=== PATIENT | male | born 1985 | race Caucasian/White ===

== ENCOUNTER 2016-07-15 21:54 | Inpatient (IN) | payer OTHER ==
[~2016-07-15] VITALS: Ht 170.2 cm; Wt 72.6 kg
--- NOTE | 2016-07-15 22:29 | NUR ---
PT IN ED FOR ANXIETY; PT PRESENTED WITH DIAPHORESIS AND RAPID BREATHING. PT ADMITS TO RECENT METH USE. PT'S HR IN THE 200'S; CONNECTED TO FULL CM. PT IS AWAKE AND ALERT; DENIES ANY PAIN AT THIS TIME. MSE COMPLETED BY DR HENRY
--- NOTE | 2016-07-15 22:34 | NUR ---
PT MEDICATED PER MD ORDERS FOR ANXIETY AND INCREASED HR DUE TO METH USE. PT ENCOURAGED TO BREATH SLOWLY AND TRY NOT TO TENSE UP MUSCLES, PT VERBALIZED UNDERSTANDING. PT BEING COOPERATIVE WITH STAFF.
[2016-07-15 22:40] LABS: PLATELET COUNT 322 x10^3mcL (130-400); RED CELL DISTRIBUTION WIDTH 13.8 % (11.5-14.5)
--- NOTE | 2016-07-15 22:48 | NUR ---
PT IN BED WITH EYES CLOSED BUT EASILY AROUSABLE. PT IS NOW BREATHING EVEN AND UNLABORED; NO LONGER DIAPHORETIC. PT IN FULL VIEW OF NURSES' STATION. WILL CONTINUE TO MONITOR
[2016-07-15 22:53] LABS: CALCIUM 9.6 mg/dL (8.5-10.1); CARBON DIOXIDE 13.6 mmol/L (21-32); CHLORIDE SERUM 102 mmol/L (98-107); CREATININE SERUM 1.6 mg/dL (0.7-1.3); GFR1 54 mL/min; GLUCOSE SERUM 145 mg/dL (74-106); POTASSIUM SERUM 4.6 mmol/L (3.5-5.1); SODIUM SERUM 143 mmol/L (136-145)
[2016-07-15 22:55] LABS: BAND NEUTROPHIL 6 % (0-10); METAMYELOCTE 3 % (0-2); MONOCYTE 5 % (0-7); SEGMENTED NEUTROPHILS 82 % (37-75); rbc morphology (normal/abnorm) NORMAL (NORMAL)
[2016-07-15 22:56] LABS: PLATELET MORPHOLOGY FEW LARGE PLATELET
[2016-07-15 22:57] LABS: ALBUMIN 4.4 g/dL (3.4-5.0); ALKALINE PHOSPHATASE 107 U/L (46-116); ALT/SGPT 100 U/L (16-63); AST/SGOT 204 U/L (15-37); BILIRUBIN TOTAL 0.6 mg/dL (0.20-1.00); LIPASE 127 IU/L (73-393); MAGNESIUM 2.1 mg/dL (1.8-2.4); TOTAL PROTEIN, SERUM 7.9 g/dL (6.4-8.2)
--- NOTE | 2016-07-15 23:07 | NUR ---
SPOKE WITH PT'S MOTHER WHO IS IN THE LOBBY, ON THE PHONE. THE MOTHER STATED SHE WOULD LIKE FOR PT TO BE ADMITTED TO [facility] IF THERE IS A "PROBLEM" AND PROVIDED NAME AND NUMBER OF HIS DOCTOR; DR MARTINS .
--- NOTE | 2016-07-16 00:18 | NUR ---
PTS FAMILY JUST CALLED AND STATED THAT PT MIGHT HAVE FALLEN TONIGHT FROM A FENCE LANDING ON HIS HEAD. NO VISIBLE TRAUMA NOTED. DR HENRY MADE AWARE.
--- NOTE | 2016-07-16 00:33 | NUR ---
FLUIDS INITIATED PER MD ORDER; SEE EMAR
--- NOTE | 2016-07-16 00:41 | NUR ---
PT TO CT VIA JACQUES
--- NOTE | 2016-07-16 01:41 | NUR ---
PT IN BED WITH EYES CLOSED, BREATHING EVEN AND UNLABORED, NAD NOTED
--- NOTE | 2016-07-16 01:55 | NUR ---
REPORT GIVENT TO CARLOS TO ASSUME CARE OF PT
--- NOTE | 2016-07-16 02:19 | NUR ---
SODIUM BICARB INITIATED PER MD ORDER; SEE EMAR. PT IN BED, RESP EVEN AND UNLABORED, NAD NOTED
--- NOTE | 2016-07-16 02:25 | NUR ---
AWAITING OKAY FOR PT'S TRANSFER
--- NOTE | 2016-07-16 02:30 | NUR ---
PT TO CT ONCE AGAIN VIA JACQUES
--- NOTE | 2016-07-16 02:58 | NUR ---
PT RETURNED FROM CT; STATED "I NEED TO GO PEE REALLY BAD." PROVIDED WITH URINAL; PT OUTPUT 750 ML CLEAR YELLOW URINE
--- NOTE | 2016-07-16 03:14 | NUR ---
PT AWAKE AND ALERT; RESP EVEN AND UNLABORED; ABLE TO FOLLOW COMMANDS, NAD NOTED AT THIS TIME
[2016-07-16 03:20] LABS: UA SPECIFIC GRAVITY 1.025 (1.005-1.035)
[2016-07-16 03:22] LABS: microscopic required? YES; urine erythrocyte 2+ (NEGATIVE)
--- NOTE | 2016-07-16 03:33 | NUR ---
PT VERBALIZED NEED TO USE RESTROOM; PROVIDED WITH URINAL. PT OUTPUT 450 ML OF CLEAR YELLOW URINE
--- NOTE | 2016-07-16 03:50 | NUR ---
STILL AWAITING OKAY FOR PT TRANSFER
--- NOTE | 2016-07-16 03:58 | NUR ---
RESIDENT AT BEDSIDE DISCUSSING WITH PT
[2016-07-16 04:00] LABS: CHOLESTEROL/HDL RATIO 3.4
--- NOTE | 2016-07-16 04:01 | NUR ---
PT OUTPUT 375 ML OF CLEAR YELLOW URINE. PT AWAKE AND ALERT; RESP EVEN AND UNLABORED, NAD NOTED AT THIS TIME
[2016-07-16 04:03] LABS: FREE T4 0.94 ng/dL (0.76-1.46); FREE THYROXINE INDEX 2.1 ug/dL (1.4-4.5); T4(THYROXINE) 7.1 ug/dL (4.7-13.3)
--- NOTE | 2016-07-16 04:18 | NUR ---
2L NS INFUSION COMPLETE
--- NOTE | 2016-07-16 04:20 | NUR ---
MEDS ADMINISTERED PRN PER MD ORDER; PT DENIES ALLERGIES TO MEDICATIONS. RESP EVEN AND UNLABORED, NAD NOTED.
--- NOTE | 2016-07-16 04:22 | NUR ---
RECEIVED OK PER MD TO HAVE PT TRANSFERED TO TELE
[2016-07-16 04:44] LABS: AMPHETAMINE QUAL UR NONE DETECTED (NEG <=1000)
[2016-07-16 05:22] VITALS: BP 120/74
[2016-07-16 05:34] LABS: T3 TOTAL 1.18 ng/mL
[2016-07-16 06:02] VITALS: BP 120/74
[2016-07-16 06:40] LABS: BASOPHIL % 0.9 % (0-2); PLATELET COUNT 238 x10^3mcL (130-400)
[2016-07-16 06:51] LABS: CALCIUM 7.9 mg/dL (8.5-10.1); CARBON DIOXIDE 33.4 mmol/L (21-32); CHLORIDE SERUM 105 mmol/L (98-107); CREATININE SERUM 0.9 mg/dL (0.7-1.3); GFR1 > 60 mL/min; GLUCOSE SERUM 126 mg/dL (74-106); MAGNESIUM 1.9 mg/dL (1.8-2.4); PHOSPHOROUS 3.3 mg/dL (2.5-4.9); POTASSIUM SERUM 3.5 mmol/L (3.5-5.1); SODIUM SERUM 139 mmol/L (136-145)
--- NOTE | 2016-07-16 07:32 | NUR ---
PT RECEIVED DURING CHANGE OF SHIFT, ASLEEP BUT AROUSABLE, A/OX4, TELE 26, NSR, DENIES CHEST PAIN, PULSES PRESENT NO EDEMA NOTED, LUNGS CTA ON 2L NC, DENIES SOB, BREATHING EVEN AND UNLABORED, BOWEL SOUNDS ACTIVE, PT UNABLE TO RECALL LBM, PT VOIDS UTILIZING URINAL, GENERALIZED WEAKNESS, SKIN WARM DRY INTACT, DENIES PAIN AT THIS TIME, IV TO LAC AND RAC, PUMP 1 INFUSING ZOSYN AT 100ML/HR, PUMP 2 INFUSING D5NS AT 200ML/HR, PT COOPERATIVE WHEN AWAKE, CALL LIGHT WITHIN REACH, WILL CONTINUE TO MONITOR.
--- NOTE | 2016-07-16 07:55 | NUR ---
DR. LOPEZ AND RESIDENTS MAKING ROUNDS, PLAN OF CARE DISCUSSED.
--- NOTE | 2016-07-16 08:32 | NUR ---
PT DENIES SOB, DENIES PAIN, MED EDUCATION GIVEN, CALL LIGHT WITHIN REACH, BREAKFAST ON TRAY AT BEDSIDE, WILL CONTINUE TO MONITOR.
--- NOTE | 2016-07-16 09:15 | NUR ---
PT ASLEEP, NO INDICATION OF PAIN, BREATHING EVEN AND UNLABORED, CALL LIGHT WITHIN REACH, WILL CONTINUE TO MONITOR.
[2016-07-16 09:41] VITALS: BP 125/68
--- NOTE | 2016-07-16 10:30 | NUR ---
PT ASLEEP, NO INDICATION OF PAIN, BREATHING EVEN AND UNLABORED, CALL LIGHT WITHIN REACH, WILL CONTINUE TO MONITOR.
--- NOTE | 2016-07-16 11:16 | NUR ---
echocardiogram completed
--- NOTE | 2016-07-16 11:39 | NUR ---
PT ASLEEP BUT AROUSABLE, DENIES PAIN, DENIES SOB, CALL LIGHT WITHIN REACH, WILL CONTINUE TO MONITOR.
--- NOTE | 2016-07-16 12:04 | NUR ---
PT ASLEEP, NO INDICATION OF PAIN, BREATHING EVEN AND UNLABORED, WILL CONTINUE TO MONITOR.
[2016-07-16 13:52] VITALS: BP 131/80
--- NOTE | 2016-07-16 14:18 | NUR ---
PT ASLEEP, NO INDICATION OF PAIN, BREATHING EVEN AND UNLABORED, CALL LIGHT WITHIN REACH, WILL CONTINUE TO MONITOR.
--- NOTE | 2016-07-16 15:01 | NUR ---
PT ASLEEP, NO INDICACTION OF PAIN, BREATHING EVEN AND UNLABORED, CALL LIGHT WITHIN REACH, WILL CONTINUE TO MONITOR.
--- NOTE | 2016-07-16 16:36 | NUR ---
PT DENIES SOB, DENIES PAIN, CALL LIGHT WITHIN REACH, PT RETURNING TO BED FROM RESTROOM, WILL CONTINUE TO MONITOR.
--- NOTE | 2016-07-16 17:14 | NUR ---
PT ASLEEP, NO INDICATION OF PAIN, BREATHING EVEN AND UNLABORED, CALL LIGHT WITHIN REACH, WILL CONTINUE TO MONITOR.
[2016-07-16 17:31] VITALS: BP 124/63
--- NOTE | 2016-07-16 18:21 | NUR ---
DENIES SOB, DENIES PAIN, AT 75% OF DINNER, NEW IV INSERTED INTO RFA, CALL LIGHT WITHIN REACH, WILL ENDORSE PT TO NEXT SHIFT.
--- NOTE | 2016-07-16 19:30 | NUR ---
PT CURRENTLY RESTING IN BED, NO ACUTE DISTRESS. A/O X4. NO TELE, MED/SURG, DENIES CHEST PAIN. PULSES PALPABLE IN ALL EXTREMITIES, NO EDEMA NOTED. LUNG SOUNDS CTA BILATERALLY. BOWEL SOUNDS ACTIVE. VOIDING WELL. MILD GENERALIZED WEAKNESS NOTED, AMBULATORY. SKIN INTACT. DENIES PAIN AT THIS TIME. IV PATENT AND INTACT. BED IN LOWEST POSITION, SIDE RAILS UP X2, SCDS IN PLACE, CALL LIGHT WITHIN REACH. WILL CONTINUE TO MONITOR.
--- NOTE | 2016-07-16 20:36 | NUR ---
RECEIVED ORDERS, PT APPROVED TO SHOWER. PT CURRENTLY SHOWERING. WILL CONTINUE TO MONITOR.
[2016-07-16 21:24] VITALS: BP 141/89
--- NOTE | 2016-07-17 02:39 | NUR ---
PT CURRENTLY RESTING IN BED, NO ACUTE DISTRESS. WILL CONTINUE TO MONITOR.
[2016-07-17 05:35] VITALS: BP 123/70
--- NOTE | 2016-07-17 05:51 | NUR ---
PT SLEPT PERIODICALLY THROUGHOUT NIGHT. NO ACUTE DISTRESS. ALL NEEDS MET AND ATTENDED TO. NO SIGNIFICANT CHANGES. IV PATENT AND INTACT. BED IN LOWEST POSITION, SIDE RAILS UP X2, SCDS IN PLACE, CALL LIGHT WITHIN REACH. WILL ENDORSE CARE TO ONCOMING NURSE.
[2016-07-17 06:08] LABS: BASOPHIL % 0.9 % (0-2); PLATELET COUNT 244 x10^3mcL (130-400); RED CELL DISTRIBUTION WIDTH 13.8 % (11.5-14.5)
[2016-07-17 06:41] LABS: CALCIUM 8.1 mg/dL (8.5-10.1); CARBON DIOXIDE 31.8 mmol/L (21-32); CHLORIDE SERUM 108 mmol/L (98-107); CREATININE SERUM 0.8 mg/dL (0.7-1.3); GFR1 > 60 mL/min; GLUCOSE SERUM 89 mg/dL (74-106); SODIUM SERUM 143 mmol/L (136-145)
--- NOTE | 2016-07-17 07:15 | NUR ---
ASLEEP, RESP EVEN AND UNLABORED.
--- NOTE | 2016-07-17 08:13 | NUR ---
CONTINUES TO SLEEP, RESP EVEN AND UNLABORED, HAS CHANGED POSITIONS.
--- NOTE | 2016-07-17 09:22 | NUR ---
AWAKE AND ACTIVE IN ROOM, SPONTANEOUS, HAD UNHOOKED IV TO GO TO THE BATHROOM. EXPLAINED HOW TO UNPLUG IV POLE AND TAKE TO BATHROOM AND EXPLAINED INCREASE IN RISK OF INFECTION WHEN UNHOOKING IV. VERBALIZED UNDERSTANDING. SITTING BEDSIDE EATING BREAKFAST. IV HOOKED BACK UP, NS @ 200 INFUSING TO RFA, SITE WNL. ALERT AND ORIENTED. DENIES PAIN AND NAUSEA AND MUSCLE SORENESS. NO EDEMA NOTED. NO SOB NOTED, ROOM AIR. REFUSED COLACE, REPORTS BM THIS AM. TOOK AM MEDS WITHOUT DIFFICULTY. AMBULATES STEADY. REPORTS VOIDING A LOT. CALL LIGHT WITHIN REACH.
[2016-07-17 10:18] VITALS: BP 138/79
--- NOTE | 2016-07-17 10:35 | NUR ---
EARLIER HAD VISITORS, NOW ASLEEP, RESP EVEN AND UNLABORED.
--- NOTE | 2016-07-17 11:52 | NUR ---
UP AMBULATING IN HALLWAY, TALKED WITH DR ALCANTAR. NO DISTRESS NOTED. DOES REPORT SORE THROAT.
--- NOTE | 2016-07-17 12:12 | NUR ---
DR ALCANTAR STATED OKAY TO HEPLOCK PATIENT SO HE COULD AMBULATE AROUND FLOOR EASIER. BOTH AND THIS NURSE IN ROOM AND TOLD PATIENT NOT TO LEAVE FLOOR, BUT TO JUST WALK AROUND THE ENTIRE UNIT, VERBALIZED UNDERSTANDING. WITHIN 10 MINUTES, BROUGHT BACK TO FLOOR BY SECURITY. WHEN ASKED IF WANTED IV REMOVED SO HE COULD SIGN OUT AGAINST MEDICAL ADVICE, DECIDED TO STAY.
--- NOTE | 2016-07-17 12:17 | NUR ---
ASSISTED WITH SET UP FOR SHOWER.
--- NOTE | 2016-07-17 13:10 | NUR ---
CALLED TO (RESIDENT) ASSIGNED TO THIS PT, UPDATED HIM OF CURRENT INAPPROPRIATE BEHAVIORS TOWARDS STAFF AND HALLUCINATING WELL. NEW ORDER RECEIVED TO GIVE PT ATIVAN 2MG IV X1. SURAJ PLUNKETT ASSIGNED TO THIS PT MADE AWARE OF ABOVE. SAID HE WILL COME TO RE-EVAL PT. WILL CONT TO MONITOR.
--- NOTE | 2016-07-17 13:33 | NUR ---
LAYING QUIETLY IN BED. ATIVAN GIVEN ORDERED.
--- NOTE | 2016-07-17 14:00 | NUR ---
ASLEEP, RESP EVEN AND UNLABORED.
--- NOTE | 2016-07-17 15:00 | NUR ---
ASLEEP RESP EVEN AND UNLABORED.
--- NOTE | 2016-07-17 15:34 | NUR ---
ASLEEP, RESP EVEN AND UNLABORED.
--- NOTE | 2016-07-17 17:45 | NUR ---
ASLEEP, RESP EVEN AND UNLABORED.
[2016-07-17 17:55] VITALS: BP 113/47
--- NOTE | 2016-07-17 20:55 | NUR ---
MOVED PATIENT TO ROOM 218 NEAR NURSING STATION DUE TO SAFETY. PATIENT ABLE TO AMBULATE, WHEN HE ARRIVED TO HIS ROOM, HIS BEHAVIOR BECAME INAPPRORIATE. HE BEGAN PUNCHING THE DOOR AND WHEN ASKED TO STOP PUNCHING THE DOOR, PATIENT CONTINUES TO PUNCH THE AIR AND THEN PROCEEDED TO DO PUSH UPS ON THE FLOOR. WHEN ASKED WHY THE PATIENT WAS DOING THAT, HE STATED THAT HE WANTED TO WORK OUT. SECURITY CALLED TO HELP CALM PATIENT DOWN DUE TO SHOWING AGGRESSIVE BEHAVIOR. MEDICATION GIVEN AND ALL SAFETY MEASURES TAKEN
[2016-07-17 21:25] VITALS: BP 135/73
--- NOTE | 2016-07-18 02:31 | NUR ---
SAFETY ROUNDS MADE NO S/SX OF DISTRESS NOTED. CALL LIGHT WITHIN REACH.
--- NOTE | 2016-07-18 05:50 | NUR ---
CALLED BY NURSING STAFF THAT PATIENT WAS SEEN WONDERING INTO OTHER PATIENT'S ROOMS. ASSISTED PATIENT BACK TO ROOM. PATIENT'S BEHAVIOR IS UNAPPROPRIATE HE ATTEMPTS TO HUG THE FEMALE STAFF MEMBERS. SCHEDULED MEDICATIONS GIVEN. CALL LIGHT WITHIN REACH AND ALL SAFETY MEASURES IN PLACE.
[2016-07-18 05:52] VITALS: BP 133/78
--- NOTE | 2016-07-18 06:10 | NUR ---
SCHEDULED MEDICATIONS ADMINISTERED. NO SWALLOWING DIFFICULTY. NO HALLUCINATIONS NOTED. PATIENT DENIES ANY PAIN AT THIS TIME. CURRENTLY IN BED. CALL LIGHT WITH REACH. CONTINUED ON ETOH PROTOCOL.
[2016-07-18 07:25] LABS: BASOPHIL % 1.3 % (0-2); PLATELET COUNT 289 x10^3mcL (130-400); RED CELL DISTRIBUTION WIDTH 13.9 % (11.5-14.5)
[2016-07-18 07:38] LABS: CALCIUM 8.9 mg/dL (8.5-10.1); CARBON DIOXIDE 29.6 mmol/L (21-32); CHLORIDE SERUM 104 mmol/L (98-107); GFR1 > 60 mL/min; GLUCOSE SERUM 90 mg/dL (74-106); POTASSIUM SERUM 3.5 mmol/L (3.5-5.1); SODIUM SERUM 140 mmol/L (136-145)
--- NOTE | 2016-07-18 08:00 | NUR ---
RECEIVED PATIENT SLEEPING BUT EASILY ARROUSED. APTEITN HAS BEEN AMBULATORY AND LUNGS ARE CLEAR AND DIMINSIHEA ND BOWEL SOUNDS ACTIVE. APTIENT HAS NO EDEMA AND PUILSES PALPABLE AND STRONG TO ALL EXTREMITES. PATIENT IS WITH WARM AND DRY SKIN AND NO SIGNS OF ACUTE WITHDRAWL BEHAVIOR AT THIS TIME. PATIENT HAS BEEN TOLERATING THE DIET LYRIC SMITH GAVE ALL MEDICATIONS IDNICATED. VITALS AT THIS TIMEA T97.8, 72, 18, 133/78, 97% ON ROOM AIR. PAIETN HAS A NEGATIVE SPOIN CT AND CT OF THE ABD AND PELVIS EIWTH AL NEGATIVE. PARTIAL COLAPSE OF THE LOWER LOBE OF THE LUNG NOTED VERSES TGE OYKIBART CIBTYSUIB. THE CHEST XRAY IS NEGATIVE. PATIENT HAS NO COMPLAINTS OF PAIN AT THIS TIME AND ON ZOSYN IVPB ORDERED AND NO ADVERSE REACTION NTOED. PATIENT HAS NOTED LABS OR CHLORIDE AT 108, CA AT 8.1, AND CO2 ON 07/16 AT 337. PATIENT HAS BEEN ON NORMAL SALINE ORDERED AT 100CC/HOUR. NO ATIVAN WAS GIVEN SO FAR THIS SHIFT AND PATIENT IS BEHAVING APPROPRIATELY. [facility]. SEEN BY DR MCKNIGHT AND DR RIVERA ORDERED.
--- NOTE | 2016-07-18 08:30 | NUR ---
SEEN BY DR LE AND TEAM AND PLAN OF CARE DISCUSSED. PATIENT IS TO BE DISCHARGE TO HOME TODAY. PATIENT IS AGREEABLE AT THIS TIME. PATIENT IS COOPERATIVE AND APPROPRIATE AT TIMES TIME WELL.
[2016-07-18 08:38] VITALS: BP 133/82
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
--- NOTE | 2016-07-18 12:36 | NUR ---
GAVE MUCINEX ORDERED. PATIENT DENIES ANY CHEST CONGESTION OR COUGH. PATIENT HAS BEEN MILDLY RESTLESS BUT NOT OUT OF CONTROL. HE HAS BEEN OOB AND AMBULATING AND THEN BACK TO THE ROOM AND SWITCHING TO THE OPPOSING BED TO LIE DOWN ON. HE HAS BEEN A LITTLE STRANGE AND AT TIME UNAPPROPRIATE WITH PHRASES BUT IS NTO AGITATED OR VIOLENT AT THIS TIME. IF NEEDED WILL GIVE THE ATIVAN. OTHERWISE WILL CONTINUE TO MONITOR.
--- NOTE | 2016-07-18 13:30 | NUR ---
PATIENT LEFT THE FLOOR AND FOLLOWED HIS FATHER DOWN TO THE AREA JUST OUTSIDE THE [place]. SECURITY ESCORTED THE PATIENT BACK TO HIS ROOM. PATIENT WAS ADVISED EARLIER TO PLEASE NOT LEAVE THE FLOOR. GAVE HIS ATIVAN PO ORDERED AND WILL CONTNUE TO ENCOURAGE COMPLIANCE WITH CARE AND SAFETY.
[2016-07-18 13:45] VITALS: BP 149/80
--- NOTE | 2016-07-18 14:00 | NUR ---
PATIENT REMOVED HIS IV AND WALKING THE UNIT. THEM HE WENT AND LYED DOWN ON THE SECOND BED AND WAS ATTEMPTING TO SLEEP. THE INFUSION WAS RUNNING ON THE FLOOR. REHOOKED THE PATIENT UP AND THEN HE IS UP IN THE SHOWER WITH THE IV INPLACE GETTING HIMSELF READY TO GO HOME. REQUESTED THE PATIENTS MOTHERS NUMBER AGAIN BUT WHEN CALLED THE PHONE WAS DISCONNECTED. PATIENT DOES NOT REMEMBER ANY OF HIS OTHER FAMILIES NUMBERS. AWAITING ORDERS FOR DISCHARGE.
--- NOTE | 2016-07-18 15:14 | NUR ---
PATIENT WALKED OFF THE FLOOR AGAIN WITH BEING DRESSED EXCEPT FOR SHOES AND ONLY SOCKS ON HIS FEET. SEEN BY THE STUDIO OPERATIONS ENGINEER IN CHARGE AND OFFERED HIM HELP IN GETTING INTO A INTERMEDIATE AND HE REFUSED. OFFERED TO GET HIM A RIDE TO WHERE HE WANTED TO GO OR CALL FOR A RIDE TO A FRIEND. PATIENT REFUSED ASSISTANCE AND TOLD STAFF AND THE [employer] HE IS OK AND HE IS A MAN AND CAN TAKE CARE OF HIMSELF WITH [employer]. PATIENTS IV REMOVED AND PATIENT SIGNED AMA FORM AND ESCORTED BY THE SECURITY TO THE PARKING LOT PREVIOUSLY AGREED.
== END 2016-07-18 15:10 | disposition left against medical advice (07) | DRG 351 ==
LOC: ED 21:54 → DU 07-16 00:27 → MU 07-16 00:27 → DU 07-16 04:30 → MU 07-16 12:32
PROVIDERS: Emergency Medicine; ADMIT Family Medicine
DX: M62.82 Rhabdomyolysis (principal); N17.0 Acute kidney failure with tubular necrosis; G92 Toxic encephalopathy; I16.0 Hypertensive urgency; S30.0XXA Contusion of lower back and pelvis, initial encounter; D72.829 Elevated white blood cell count, unspecified; E86.0 Dehydration; K21.9 Gastro-esophageal reflux disease without esophagitis; F15.10 Other stimulant abuse, uncomplicated; F12.90 Cannabis use, unspecified, uncomplicated; S09.90XA Unspecified injury of head, initial encounter; F10.929 Alcohol use, unspecified with intoxication, unspecified; Y90.9 Presence of alcohol in blood, level not specified; R74.0 Nonspecific elevation of levels of transaminase and lactic acid dehydrogenase [LDH]; Z53.29 Procedure and treatment not carried out because of patient's decision for other reasons; W19.XXXA Unspecified fall, initial encounter; Y93.89 Activity, other specified; Y92.89 Other specified places as the place of occurrence of the external cause; Y99.8 Other external cause status
CPT/HCPCS: 80307; 83880; 84439; G0480; J2060; J2270; J2543; J3490; J7030; J7070; Q0092; Q9967

== ENCOUNTER 2016-11-13 02:20 | Inpatient (IN) | payer OTHER ==
[~2016-11-13] VITALS: Ht 167.6 cm; Wt 74.4 kg
[2016-11-13 03:50] LABS: PLATELET COUNT 257 x10^3mcL (130-400); RED CELL DISTRIBUTION WIDTH 13.3 % (11.5-14.5)
[2016-11-13 03:58] LABS: CARBON DIOXIDE 25.3 mmol/L (21-32); CHLORIDE SERUM 106 mmol/L (98-107); GFR1 > 60 mL/min; GLUCOSE SERUM 124 mg/dL (74-106); POTASSIUM SERUM 3.7 mmol/L (3.5-5.1); SODIUM SERUM 138 mmol/L (136-145)
[2016-11-13 04:04] LABS: ALBUMIN 4.2 g/dL (3.4-5.0); ALKALINE PHOSPHATASE 93 U/L (46-116); ALT/SGPT 29 U/L (16-63); AST/SGOT 24 U/L (15-37); BILIRUBIN TOTAL 0.5 mg/dL (0.20-1.00); TOTAL PROTEIN, SERUM 7.7 g/dL (6.4-8.2)
[2016-11-13 04:24] LABS: AMPHETAMINE QUAL UR NONE DETECTED (NEG <=1000)
[2016-11-13 08:22] LABS: PHOSPHOROUS 3.5 mg/dL (2.5-4.9)
[2016-11-13 08:45] VITALS: BP 120/70
[2016-11-13 08:48] LABS: FREE T4 0.99 ng/dL (0.76-1.46); FREE THYROXINE INDEX 2.7 ug/dL (1.4-4.5); T4(THYROXINE) 7.2 ug/dL (4.7-13.3)
[2016-11-13 09:50] LABS: T3 TOTAL 1.11 ng/mL
[2016-11-13 11:32] VITALS: BP 129/74
[2016-11-13 15:53] VITALS: BP 140/73
[2016-11-13 21:21] VITALS: BP 112/58
[2016-11-14 05:33] VITALS: BP 119/70
[2016-11-14 10:13] VITALS: BP 110/73
[2016-11-14 23:18] VITALS: BP 117/66
[2016-11-15 06:52] LABS: BASOPHIL % 0.9 % (0-2); PLATELET COUNT 226 x10^3mcL (130-400); RED CELL DISTRIBUTION WIDTH 13.1 % (11.5-14.5)
[2016-11-15 07:12] LABS: CALCIUM 8.7 mg/dL (8.5-10.1); CHLORIDE SERUM 106 mmol/L (98-107); CREATININE SERUM 0.9 mg/dL (0.7-1.3); GFR1 > 60 mL/min; GLUCOSE SERUM 104 mg/dL (74-106); MAGNESIUM 1.9 mg/dL (1.8-2.4); PHOSPHOROUS 3.6 mg/dL (2.5-4.9); POTASSIUM SERUM 3.9 mmol/L (3.5-5.1); SODIUM SERUM 138 mmol/L (136-145)
[2016-11-15 08:10] VITALS: BP 108/55
[2016-11-15 16:10] VITALS: BP 142/80
[2016-11-15 21:53] VITALS: Ht 167.6 cm; Wt 74.4 kg
[2016-11-16 06:07] VITALS: BP 107/51
[2016-11-16 08:30] VITALS: BP 94/51
[2016-11-16 10:12] VITALS: BP 120/64
[2016-11-16] MEDS ORDERED: SEROQUEL200 MG PO (17:45)
[2016-11-16 18:57] VITALS: BP 136/74
[2016-11-16 22:00] VITALS: BP 117/61
[2016-11-17 06:21] VITALS: BP 138/53
[2016-11-17 11:22] VITALS: BP 110/74
[2016-11-17 17:34] VITALS: BP 129/73
[2016-11-17 21:29] VITALS: BP 115/46
[2016-11-18 06:41] VITALS: BP 104/57
[2016-11-18 08:12] VITALS: BP 117/65
[2016-11-18 16:59] VITALS: BP 115/62
[2016-11-18 21:07] VITALS: BP 121/70
[2016-11-19 05:56] VITALS: BP 108/58
[2016-11-19 09:40] VITALS: BP 126/78
[2016-11-19 15:39] VITALS: BP 126/78
[2016-11-19] MEDS ORDERED: ATIVAN1 MG PO (16:20)
== END 2016-11-19 17:15 | disposition home or self-care (01) | DRG 364 ==
LOC: ED 02:20 → IC 07:35 → DU 07:35 → MU 07:35 → IC 08:10 → DU 18:11 → MU 11-14 06:12
PROVIDERS: Emergency Medicine; Family Medicine; ADMIT Family Medicine
PROC: 0JQL0ZZ Repair Right Upper Leg Subcutaneous Tissue and Fascia, Open Approach (ICD-10-PCS; principal; 2016-11-13)
DX: S71.111A Laceration without foreign body, right thigh, initial encounter (principal); R45.851 Suicidal ideations; F31.9 Bipolar disorder, unspecified; X78.1XXA Intentional self-harm by knife, initial encounter; Y92.040 Kitchen in boarding-house as the place of occurrence of the external cause; Z90.49 Acquired absence of other specified parts of digestive tract; E78.5 Hyperlipidemia, unspecified; Z23 Encounter for immunization; F20.9 Schizophrenia, unspecified; E66.3 Overweight; Z68.26 Body mass index [BMI] 26.0-26.9, adult
CPT/HCPCS: 84439; 90715; G0480; J0696; J1200; J2001; J2060; J7030; Q0092; Q9967